=== PATIENT | female | born 1990 | race Caucasian/White ===

== ENCOUNTER 2016-07-29 17:05 | Emergency (ER) | payer SELFPAY ==
[~2016-07-29] VITALS: Ht 165.1 cm; Wt 54.0 kg
[~2016-07-29 17:05] MED LIST: OMEG10007 PO; PRENTAB26 PO; PRLSR20 PO
[2016-07-29 17:23] VITALS: TEMP 36.9; Ht 165.1 cm; Wt 54.0 kg
[2016-07-29] MEDS ORDERED: CEFTRIAXONE SOD INJ 1 GM ADDVIAL IV STA (17:49)
[2016-07-29] MEDS ORDERED: SULFAMETHOXAZOLE/TRIMETHOPRIM DS 800/160MG TAB PO STA (17:49)
[2016-07-29 18:23] LABS: BASO % 0.1 %; BASO ABS # 0.01 K/uL (0-0.2); COMPLETE YES; HEMATOCRIT 39.3 % (37-47); IG% 0.2 %; LYMPH % 18.1 %; LYMPH ABS # 2.31 K/uL (1.2-3.4); MEAN CELL VOLUME 92.7 fL (80-100); MEAN CORPUSCULAR HEMOGLOBIN 32.1 pg (25-34); MEAN CORPUSCULAR HGB CONC 34.6 g/dl (32-36); MEAN PLATELET VOLUME 10.9 fL (7.4-10.4); MONO % 4.5 %; NEUT % 76.1 %; PLATELET COUNT 192 K/uL (130-400); RED BLOOD COUNT 4.24 M/uL (4.2-5.4); WHITE BLOOD COUNT 12.78 K/uL (4.8-10.8)
[2016-07-29 18:46] LABS: BUN/CREATININE RATIO 15.4 (10-20); C-REACTIVE PROTEIN 1.34 mg/dl (0-0.29); CALCIUM 9.1 mg/dl (8.5-10.1); CREATININE 0.81 mg/dl (0.60-1.20); POTASSIUM 3.7 mmol/L (3.5-5.1)
[2016-07-29] MEDS ORDERED: SULF800T23 PO (19:10)
[2016-07-29] MEDS ORDERED: CEPH500C2 PO (19:10)
--- NOTE | 2016-07-29 19:10 | EMERGENCY ROOM VISIT NOTE ---
ED Visit Note First contact with patient: 17:34 CHIEF COMPLAINT: Infection of the left thumb 2 days HISTORY OF PRESENT ILLNESS: Patient is a [id number] 25-year-old white female who admits to IV heroin use, who presents emergency department for evaluation of redness, pain, warmth and swelling of her left thumb 2 days. Patient reports injecting heroin for several days neuro last week. She believes that she injected in the dorsal aspect of her left thumb 4-5 days ago. Friday, 2 days ago, she abandoned to notice some redness and swelling in the dorsum of her left thumb which has progressively worsened. She reports taking one dose of amoxicillin today and took naproxen to help with discomfort which she presently rates a 2/10. She denies any fever, chills, nausea, vomiting or malaise. She does have a history of an abscess/cellulitis of the left wrist also which was a result of her IV drug use. She was seen and treated here and responded to IV antibiotics and therefore did not require surgical I&D. She denies being told that she had MRSA. REVIEW OF SYSTEMS: Review of systems as per HPI. All other systems reviewed were negative. 10 systems reviewed. PMH: Electronic medical records are reviewed and summarized as above/below. See Problem List. She reports her tetanus is up-to-date. SOCIAL HISTORY: Patient lives at home with her boyfriend. Smokes one half pack of cigarettes daily.. PHYSICAL EXAM: Vital Signs: Reviewed Nurse's notes. CONSTITUTIONAL: Patient is a well-appearing 25-year-old white female who is awake and alert and in no acute distress. CARDIOVASCULAR: Regular rate and rhythm. Peripheral pulses easily palpable. RESPIRATORY: Breath sounds equal and clear to auscultation without wheezes, rales, or rhonchi heard. Full and equal chest expansion without accessory muscle use or retractions. INTEGUMENTARY: Bruising and tract paris noted of the entire left upper extremity. The patient has marked erythema involving the dorsum of the right thumb, centered around the MCP joint, with erythema extending into the dorsum of the hand to roughly the fourth metacarpal and into the extensor crease of the wrist. The thumb is swollen and moderately tender. There is no pointing or fluctuance noted. There is no lymphangitic streaking. MUSCULOSKELETAL: Patient has tenderness to palpation over the MCP joint of the left thumb, no pain over the IP joint. Range of motion of the thumb is full, limited only by soft tissue swelling. Capillary refill is less than 2 seconds. Sensation is intact. EMERGENCY DEPARTMENT COURSE: The patient was seen and evaluated as above. Her old records were reviewed including prior culture results. At that time, she responded to IV Ancef and was discharged on Augmentin. X-rays of the left thumb were taken and negative for any bony abnormality. IV access was obtained , CBC with differential, CMP, ESR and BMP were collected. She was given Rocephin 1 g IV and Bactrim DS 2 tablets orally. She has a minimally elevated white count of 12,700. Sedimentation rate is normal and CRP is minimally elevated. At this time, she does not have any evidence for drainable abscess. Physical exam is not consistent with infectious tenosynovitis. I do not suspect osteomyelitis. The patient was educated on the worrisome signs or symptoms for which she should return to the emergency department. She'll be discharged on Keflex and Bactrim. LEFT THUMB 3 VIEWS CLINICAL HISTORY: Left thumb infection. FINDINGS: 3 views of left thumb are obtained. No prior studies are available for comparison at the time of dictation. The skeletal structures are well mineralized. No fracture is seen. The first metacarpophalangeal and interphalangeal joints are well-maintained. No bony erosion or periostitis is identified. Soft tissue edema is noted in the left thumb. No radiodense foreign body or subcutaneous gas is seen. IMPRESSION: Soft tissue swelling with no acute bony abnormality seen in the left thumb. Problem List Medical Problems: (1) Abdominal pain Status: Resolved (2) Abscess or cellulitis of wrist Status: Resolved (3) Bradycardia Status: Resolved (4) Bradycardia Status: Resolved (5) Cellulitis Status: Resolved (6) Cellulitis Status: Resolved (7) IV drug abuse Status: Chronic (8) Marijuana use Status: Chronic (9) Nausea and vomiting Status: Resolved (10) Ovarian cyst Status: Resolved (11) Status: Resolved (12) Skin problems Status: Resolved Current/Historical Medications Scheduled Cephalexin Monohydrate (Keflex), 500 MG PO QID Sulfa/Trimethoprim (Bactrim Ds 800MG/160MG), 1 TAB PO BID Allergies Coded Allergies: No Known Allergies (Unverified , 07/29/16) Vital Signs Date Time Temp Pulse Resp B/P Pulse Ox O2 Delivery O2 Flow Rate FiO2 07/29/16 19:52 71 16 105/65 98 07/29/16 17:23 36.9 82 18 116/73 100 Room Air Laboratory Results 07/29/16 18:10 Red Blood Count 4.24, Mean Corpuscular Volume 92.7, Mean Corpuscular Hemoglobin 32.1, Mean Corpuscular Hemoglobin Concent 34.6, Mean Platelet Volume 10.9, Neutrophils (%) (Auto) 76.1, Lymphocytes (%) (Auto) 18.1, Monocytes (%) (Auto) 4.5, Eosinophils (%) (Auto) 1.0, Basophils (%) (Auto) 0.1, Neutrophils # (Auto) 9.72, Lymphocytes # (Auto) 2.31, Monocytes # (Auto) 0.58, Eosinophils # (Auto) 0.13, Basophils # (Auto) 0.01 07/29/16 18:10 Test 07/29/16 18:10 White Blood Count 12.78 K/uL (4.8-10.8) Red Blood Count 4.24 M/uL (4.2-5.4) Hemoglobin 13.6 g/dL (12.0-16.0) Hematocrit 39.3 % (37-47) Mean Corpuscular Volume 92.7 fL (80-100) Mean Corpuscular Hemoglobin 32.1 pg (25-34) Mean Corpuscular Hemoglobin Concent 34.6 g/dl (32-36) Platelet Count 192 K/uL (130-400) Mean Platelet Volume 10.9 fL (7.4-10.4) Neutrophils (%) (Auto) 76.1 % Lymphocytes (%) (Auto) 18.1 % Monocytes (%) (Auto) 4.5 % Eosinophils (%) (Auto) 1.0 % Basophils (%) (Auto) 0.1 % Neutrophils # (Auto) 9.72 K/uL (1.4-6.5) Lymphocytes # (Auto) 2.31 K/uL (1.2-3.4) Monocytes # (Auto) 0.58 K/uL (0.11-0.59) Eosinophils # (Auto) 0.13 K/uL (0-0.5) Basophils # (Auto) 0.01 K/uL (0-0.2) RDW Standard Deviation 44.3 fL (36.4-46.3) RDW Coefficient of Variation 13.1 % (11.5-14.5) Immature Granulocyte % (Auto) 0.2 % Immature Granulocyte # (Auto) 0.03 K/uL (0.00-0.02) Erythrocyte Sedimentation Rate 7 mm/hr (0-21) Anion Gap 5.0 mmol/L (3-11) Est Creatinine Clear Calc Drug Dose 89.7 ml/min Estimated GFR () 116.2 Estimated GFR (Non- 100.2 BUN/Creatinine Ratio 15.4 (10-20) Calcium Level 9.1 mg/dl (8.5-10.1) C-Reactive Protein 1.34 mg/dl (0-0.29) Medications Administered Medications (Trade) Dose Ordered Sig/Aishwarya Route Start Time Stop Time Status Last Admin Dose Admin Ceftriaxone Sodium (Rocephin Inj) 1 gm NOW STAT IV 07/29/16 17:49 07/29/16 17:51 DC 07/29/16 18:15 1 GM Trimethoprim/ Sulfamethoxazole (Septra Ds 800/ 160MG Tab) 2 tab NOW STAT PO 07/29/16 17:49 07/29/16 17:51 DC 07/29/16 18:15 2 TAB Departure Information Impression Primary Impression: Cellulitis of left hand Additional Impression: IV drug abuse Prescriptions Sulfa/Trimethoprim (Bactrim Ds 800MG/160MG) Tab 1 TAB PO BID, #20 TAB Prov: Kiersten Don PA 07/29/16 Cephalexin Monohydrate (KEFLEX) 500 Mg Cap 500 MG PO QID, #40 CAP Prov: Kiersten Don PA 07/29/16 Referrals No Doctor, Assigned (PCP) Patient Instructions [facility] Additional Instructions Cephalexin(Keflex) 500mg: Take one pill four times daily for 10 days for your skin infection. All antibiotics can cause diarrhea. If this occurs and you feel worse or it does not resolve in 1-2 days follow up with your doctor or return to the Emergency Department as this could be signs of serious underlying problems. Any medication can cause an allergic reaction, stop the pills immediately and return to the ER for rash, hives, breathing difficulties, or swelling. Trimethoprim-Sulfamethoxazole(Bactrim DS): Take one pill twice daily for 10 days for your skin infection. All antibiotics can cause diarrhea. If this occurs and you feel worse or it does not resolve in 1-2 days follow up with your doctor or return to the Emergency Department as this could be signs of serious underlying problems. Any medication can cause an allergic reaction, stop the pills immediately and return to the ER for rash, hives, breathing difficulties, or swelling. Ibuprofen(Motrin, Advil) may be used for fever or pain. Use 600mg every six hours as needed. Take with food. Avoid using more than 2400mg in a 24 hour period. Do not use 2400mg per day for more than three consecutive days without physician direction. Prolonged inappropriate use can lead to stomach upset or ulcers. (AND/OR) Acetaminophen(Tylenol) may be used for fever or pain. Use 1000mg every six hours as needed. Avoid using more than 3000mg in a 24 hour period. Warm compresses to the affected area 4 times daily for 15-20 minutes. Rest and drink plenty of fluids. Continue current medications. Return to the ER for severe pain, persistent fevers, spreading redness, or any worsening of your condition. Follow up with your primary physician within 2-3 days for a recheck of the current condition. Problem Qualifiers
--- NOTE | 2016-07-29 19:34 | DIAGNOSTIC IMAGING REPORT ---
LEFT THUMB 3 VIEWS CLINICAL HISTORY: Left thumb infection. FINDINGS: 3 views of left thumb are obtained. No prior studies are available for comparison at the time of dictation. The skeletal structures are well mineralized. No fracture is seen. The first metacarpophalangeal and interphalangeal joints are well-maintained. No bony erosion or periostitis is identified. Soft tissue edema is noted in the left thumb. No radiodense foreign body or subcutaneous gas is seen. IMPRESSION: Soft tissue swelling with no acute bony abnormality seen in the left thumb. Electronically signed by: Asif Forrest M.D. 07/29/2016 7:31 PM Dictated Date/Time: 07/29/2016 7:30 PM
[2016-07-29 19:52] VITALS: BP 105/65; PULSE 71; O2SAT 98
== END 2016-07-29 20:01 | disposition home or self-care (01) ==
LOC: C.EDB 17:06 → C.EDD 20:01
DX: L03.012 Cellulitis of left finger (principal); F11.10 Opioid abuse, uncomplicated; F12.10 Cannabis abuse, uncomplicated; F17.210 Nicotine dependence, cigarettes, uncomplicated